=== PATIENT | female | born 1995 | race Caucasian/White ===

== ENCOUNTER 2016-10-07 15:10 | Emergency (ER) | payer OTHER ==
[2016-10-07 17:08] LABS: BASOPHIL 0.2 % (0-2); EOSINOPHIL 0.1 % (0-5); HCT 44.6 % (37.0-47.0); HGB 15.4 g/dl (12.5-16.0); LYMPHOCYTE 11.9 % (15-48); MCHC 34.5 g/dL (32.0-36.0); MCV 86.8 fL (78.0-100.0); MONOCYTE 8.7 % (0-12); MPV 9.6 fL (6.0-9.5); NEUTROPHIL 79.1 % (41-80); PLT 285 K/uL (150-400); RBC 5.14 M/uL (4.20-5.40); RDW 13.7 % (11.5-14.0); WBC 13.4 K/uL (4.0-10.5)
[2016-10-07 17:30] LABS: ALBUMIN 5.3 g/dL (3.5-5.0); BILIRUBIN - TOTAL 0.5 mg/dL (0.1-1.0); CREATININE 0.7 mg/dL (0.5-1.0); GLOBULIN (CALCULATION) 3.4 g/dL (2.2-4.2); POTASSIUM 3.7 mmol/L (3.5-5.1); TOTAL PROTEIN 8.7 g/dL (6.4-8.3)
[2016-10-07 18:12] LABS: BILIRUBIN 1+ mg/dL (NEGATIVE); BLOOD TRACE-INTACT Ery/uL (NEGATIVE); CLARITY CLEAR (CLEAR); COLOR YELLOW (YELLOW); GLUCOSE (U) NORMAL (NORMAL); KETONE (U) 3+ (LARGE) mg/dL (NEGATIVE); LEUKOCYTES NEGATIVE Leu/uL (NEGATIVE); NITRITE NEGATIVE (NEGATIVE); PROTEIN TRACE (LOW) mg/dL (NEGATIVE); UROBILINOGEN 0.2 mg/dL (0.2-1.0)
[2016-10-07 18:17] LABS: URINARY WBC RARE
[2016-10-07 18:18] LABS: BACTERIA TRACE; MUCOUS TRACE
== END 2016-10-07 18:36 | disposition home or self-care (01) ==
LOC: FER 15:10
PROVIDERS: Nurse Practitioner
DX: R11.2 Nausea with vomiting, unspecified (principal)
CPT/HCPCS: 36415; 80053; 81001; 82150; 83690; 85025; J2405